=== PATIENT | male | born 1965 | race Caucasian/White ===

== ENCOUNTER 2024-01-02 06:09 | Inpatient (IN) | payer OTHER, SELFPAY ==
[2024-01-02] VITALS (28 sets, daily range): BP systolic 93–139; BP diastolic 74–106; PULSE 71–141; RESP 14–24; TEMP 36–37; O2SAT 91–99; BMI 39.6
--- NOTE | 2024-01-02 06:48 | CRLHL7_ITS ---
For Patients: As a result of the Century Cures Act, medical imaging exams and procedure reports are released immediately into your electronic medical record. You may view this report before your referring provider. If you have questions, please contact your health care provider. INDICATION: Abdominal pain. COMPARISON: None. TECHNIQUE: CT of the abdomen and pelvis with intravenous contrast. Multiplanar axial, coronal, and sagittal reformats were reconstructed. Contrast: 147 mL Isovue 370. FINDINGS: Lung bases: Densely calcified left lower lobe granuloma. Prominent extrapleural fat deposition. Liver: Diffuse hepatic steatosis. The liver is not enlarged or cirrhotic. The portal vein is patent. Gallbladder and bile ducts: Normal gallbladder. No bile duct dilation. Pancreas: Normal. Spleen: Calcified splenic granulomas. Normal spleen size. Adrenal glands: Normal. Kidneys: Normal parenchyma. No cyst or solid mass. No calculi. No urinary tract dilation. Urinary bladder: Normal. Pelvis: No cyst or mass. Vessels: Atherosclerotic vascular calcifications. No abdominal aortic aneurysm. Widely patent mesenteric vasculature. Bowel: Stomach and duodenum are decompressed. There is gradual transition to dilated small bowel. The distal transition point is at the entry into the periumbilical hernia. The bowel within the hernia sac is also fairly dilated. The bowel within the hernia sac is mildly thick-walled and there is a small amount of fluid within the hernia sac. The neck of the hernia measures 4.2 x 4.7 centimeters. The hernia sac measures 11 by 12 x 8 centimeters. The dilated small bowel proximal to the hernia sac has normal bowel wall thickness and enhancement. There is no pneumatosis. No mesenteric or portal venous gas. No free air. The transition point is at the level of the distal ileum. The terminal ileum has a normal CT appearance. Normal appendix.. Mild stool burden. Lymph nodes: No adenopathy. Peritoneum: No ascites. Abdominal wall: See above. Bones: No fractures. No focal worrisome bone lesions. IMPRESSION: 1. Small-bowel obstruction due to an incarcerated appearing umbilical hernia. Mild thickening of the bowel wall within the hernia sac may indicate mild ischemia. No perforation. 2. Diffuse hepatic steatosis. Please note that all CT scans at this facility use dose modulation, iterative reconstruction, and/or weight-based dosing when appropriate to reduce radiation dose to as low as reasonably achievable. Dictated by Cynthia Kramer MD @ 01/02/2024 8:04:27 AM (Electronically Signed)
[2024-01-02] MEDS: 0.9 % SODIUM CHLORIDE 1000 ml 1,000 ML 500 ML IV (06:58)
[2024-01-02] MEDS: ONDANSETRON 2 MG/ML inj 4 MG IVP (06:58)
[2024-01-02] MEDS: fentaNYL 100 MCG/2 ML inj 50 MCG IVP (06:58)
[2024-01-02 07:03] LABS: Basophils Percent Auto 0.2 % (0.0-3.0); Eosinophils Percent Auto 0.6 % (0.0-7.0); Hematocrit 50.6 % (37.0-53.0); Hemoglobin* 17.7 gm/dL (13.5-17.5); Immature Granulocytes Pct Auto 0.2 %; Lymphocytes Percent Auto 7.6 % (20-44); Mean Corpuscular HGB Conc 35 gm/dL (32-36); Mean Corpuscular Hemoglobin 33 pg (26-34); Mean Corpuscular Volume 94 fL (80-100); Neutrophils Percent Auto 85.4 % (42.0-72.0); Platelet Count* 198 K/uL (140-440); RDW Coefficient of Variation % 12.6 % (11.5-15.5); Red Blood Count 5.41 m/uL (4.30-5.90); White Blood Count* 12.83 K/uL (4.50-11.00)
--- NOTE | 2024-01-02 07:06 | ED.ABDPAIN ---
HPI - Abdominal Pain General Date Seen: 01/02/24 <Ronen Mckeon MD - Last Filed: 01/15/24 22:52> Chief Complaint: Abdominal Pain <Ronen Mckeon MD - Last Filed: 01/15/24 22:52> Stated Complaint: Lower abd pain <Ronen Mckeon MD - Last Filed: 01/15/24 22:52> Time Seen by Provider: 01/02/24 06:39 <Ronen Mckeon MD - Last Filed: 01/15/24 22:52> Source: patient <Ronen Mckeon MD - Last Filed: 01/15/24 22:52> Mode of arrival: ambulatory <Ronen Mckeon MD - Last Filed: 01/15/24 22:52> Limitations: no limitations <Ronen Mckeon MD - Last Filed: 01/15/24 22:52> History of Present Illness HPI narrative: 58-year-old male who presents with pain in his chronic umbilical hernia. This is been present for at least the past six or seven years with only minor discomfort. Over the last two or three weeks pain has gotten more severe in over the past 24 hours it has gotten intolerable. He has had some loose stools as well as nausea and vomiting. The size of the hernia increases and decreases. It feels better as he pushes it in but will not stay in. He was going to have this fixed about six years ago and then had some issues with atrial fibrillation and then the COVID pandemic started. All these things had led to a delay. He does not have the local physician. He occasionally sees Dr. Lopez in [place]. He does follow-up with Cardiology periodically. He is on metoprolol and diltiazem chronically. He denies fevers or chills. He denies any black or bloody stools. He is not on a blood thinner. <Ronen Mckeon MD - Last Filed: 01/15/24 22:52> Related Data Home Medications: Home Medications ?Medication ?Instructions ?Recorded ?Confirmed diltiazem HCl 240 mg 240 mg PO DAILY 01/02/24 01/15/24 capsule,extended release 24 hr metoprolol succinate 100 mg 100 mg PO DAILY 01/02/24 01/15/24 tablet,extended release 24 hr <Ronen Mckeon MD - Last Filed: 01/15/24 22:52> Allergies/Adverse Reactions: Allergies Allergy/AdvReac Type Severity Reaction Status Date / Time Penicillins AdvReac Verified 01/15/24 13:05 <Ronen Mckeon MD - Last Filed: 01/15/24 22:52> Review of Systems Narrative Review of systems is as outlined above otherwise noted to be negative. 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 HEENT: Conjunctiva clear. Neck is supple without adenopathy, thyromegaly. Lungs: Clear to auscultation in all nevarez. No wheezes, rales, rhonchi. Heart: Irregularly irregular rate and rhythm without murmur. Abdomen: Obese with a large umbilical hernia. This area is tender and I can only partially reduce it. Bowel sounds are present. The remainder of the abdomen is benign. Extremities: No cyanosis or edema. Good distal pulses. Skin: No abnormalities noted of the exposed skin. Neurologic: Awake, alert, fully oriented. Neurologic exam is nonfocal. <Ronen Mckeon MD - Last Filed: 01/15/24 22:52> Const: Vital Signs, click to edit/add: Vital Signs - 24 hr 01/02/24 06:17 01/02/24 06:43 01/02/24 07:25 Temperature 97.6 F Pulse Rate [Pulse Oximeter] 104 H 91 Respiratory Rate 24 20 Blood Pressure 131/80 Blood Pressure [Le ft Upper Arm] 93/82 122/93 H Pulse Oximetry 96 96 Oxygen Delivery Me thod Room Air Room Air <Ronen Mckeon MD - Last Filed: 01/15/24 22:52> Vital Signs, click to edit/add: Vital Signs - 24 hr 01/02/24 06:17 01/02/24 06:43 01/02/24 07:25 Temperature 97.6 F Pulse Rate [Pulse Oximeter] 104 H 91 Respiratory Rate 24 20 Blood Pressure 131/80 Blood Pressure [Le ft Upper Arm] 93/82 122/93 H Pulse Oximetry 96 96 Oxygen Delivery Me thod Room Air Room Air <Bonifacio Davila MD - Last Filed: 01/02/24 08:25> Course Course ED Course: Patient seen and examined. He is very uncomfortable. He is given fentanyl 50 mcg IV for pain. Will give him a L of normal saline over 2 hours. He is given Zofran 4 mg IV for nausea. Labs an abdominal CT are ordered. <Ronen Mckeon MD - Last Filed: 01/15/24 22:52> Reevaluation(s) Reevaluation #1: Patient's labs have returned. CBC shows white blood count of 12.8 chief. Basic metabolic panel shows a sodium 132 and a glucose of 150. LFTs show an AST of 47, total bilirubin 1.6, direct bilirubin 0.6. Lipase is normal. <Ronen Mckeon MD - Last Filed: 01/15/24 22:52> Reevaluation #2: I called Dr. Sims who will review the CT scan and call back. <Ronen Mckeon MD - Last Filed: 01/15/24 22:52> Time of Reevaluation #3: 08:10 <Bonifacio Davila MD - Last Filed: 01/02/24 08:25> Reevaluation #3: Care discussed with Dr. Sims, plan for OR today <Bonifacio Davila MD - Last Filed: 01/02/24 08:25> Vital Signs Vital signs: Initial Vital Signs Temperature 97.6 F 01/02/24 06:17 Temperature Source Temporal Artery Scan 01/02/24 06:17 Pulse Rate 104 H 01/02/24 06:17 Respiratory Rate 24 01/02/24 06:17 Blood Pressure 93/82 01/02/24 06:17 Blood Pressure Mean 85 01/02/24 06:17 Blood Pressure Position Sitting 01/02/24 06:17 Pulse Oximetry 96 01/02/24 06:17 Oxygen Delivery Method Room Air 01/02/24 06:17 Vital Signs Temperature 97.6 F 01/02/24 06:17 Pulse Rate 104 H 01/02/24 06:17 Respiratory Rate 24 01/02/24 06:17 Blood Pressure 93/82 01/02/24 06:17 Pulse Oximetry 96 01/02/24 06:17 Oxygen Delivery Method Room Air 01/02/24 06:17 Temperature 98.8 F 01/05/24 07:00 Pulse Rate 93 01/05/24 07:00 Respiratory Rate 18 01/05/24 07:00 Blood Pressure 150/97 H 01/05/24 07:00 Pulse Oximetry 99 01/05/24 07:00 Oxygen Delivery Method Room Air 01/05/24 07:00 Oxygen Flow Rate 0 01/04/24 23:16 <Ronen Mckeon MD - Last Filed: 01/15/24 22:52> Initial Vital Signs Temperature 97.6 F 01/02/24 06:17 Temperature Source Temporal Artery Scan 01/02/24 06:17 Pulse Rate 104 H 01/02/24 06:17 Respiratory Rate 01/02/24 06:17 Blood Pressure 93/82 01/02/24 06:17 Blood Pressure Mean 85 01/02/24 06:17 Blood Pressure Position Sitting 01/02/24 06:17 Pulse Oximetry 96 01/02/24 06:17 Oxygen Delivery Method Room Air 01/02/24 06:17 Vital Signs Temperature 97.6 F 01/02/24 06:17 Pulse Rate 104 H 01/02/24 06:17 Respiratory Rate 24 01/02/24 06:17 Blood Pressure 93/82 01/02/24 06:17 Pulse Oximetry 96 01/02/24 06:17 Oxygen Delivery Method Room Air 01/02/24 06:17 Temperature 98.8 F 01/05/24 07:00 Pulse Rate 93 01/05/24 07:00 Respiratory Rate 18 06/17/24 07:00 Blood Pressure 150/97 H 01/05/24 07:00 Pulse Oximetry 99 01/05/24 07:00 Oxygen Delivery Method Room Air 01/05/24 07:00 Oxygen Flow Rate 0 01/04/24 23:16 <Bonifacio Davila MD - Last Filed: 01/02/24 08:25> Medications Administered Medications: Discontinued Medications Generic Name Dose Route Start Last Admin Trade Name Freq PRN Reason Stop Dose Admin Acetaminophen 650 mg 01/02/24 14:50 01/04/24 06:24 Acetaminophen 325 Mg Tablet PO 650 mg Q4H PRN Administration Pain Acetaminophen 650 mg 01/04/24 11:00 01/05/24 06:43 Acetaminophen 325 Mg Tablet PO 650 mg Q4H JAMES Administration Hydrocodone Bitart/Acetaminophen 1 - 2 tab 01/02/24 14:50 01/03/24 04:03 Hydrocodone-Acetamin 5-325 Mg 1 Tab PO 2 tab Q4H PRN Administration Pain Bupivacaine HCl 30 ml 01/02/24 11:16 01/02/24 13:22 Bupivacaine 0.25% 30 Ml INJECTION 01/02/24 11:17 8 ml ONCE ONE Administration Bupivacaine HCl 30 ml 01/03/24 11:02 01/03/24 11:02 Bupivacaine 0.5% 30 Ml INJECTION 01/03/24 11:03 20 ml ONCE ONE Administration Diltiazem HCl 240 mg 01/02/24 08:38 01/02/24 09:04 Diltiazem 240 Mg Cap (Cd) PO 01/02/24 08:39 240 mg ONCE ONE Administration Diltiazem HCl 240 mg 01/03/24 09:00 01/05/24 09:02 Diltiazem 240 Mg Cap (Cd) PO 240 mg DAILY JAMES Administration Ertapenem 1 gm 01/02/24 10:13 01/02/24 10:42 Ertapenem 1 Gm Inj IVPB 01/02/24 10:14 1 gm ONCE ONE Administration Fentanyl 50 mcg 01/02/24 06:49 01/02/24 06:58 Fentanyl 100 Mcg/2 Ml Inj IVP 01/02/24 06:50 50 mcg ONCE ONE Administration Hydromorphone HCl 0.5 mg 01/02/24 08:33 01/02/24 08:46 Hydromorphone 0.5 Mg/0.5 Ml Inj IVP 01/02/24 08:34 0.5 mg ONCE ONE Administration Hydromorphone HCl 0.5 mg 01/02/24 09:23 01/02/24 14:34 Hydromorphone 0.5 Mg/0.5 Ml Inj IVP 0.5 mg Q10M PRN Administration Pain Hydromorphone HCl 0.1 - 0.5 mg 01/02/24 14:50 01/03/24 14:23 Hydromorphone 0.5 Mg/0.5 Ml Inj IVP 0.5 mg Q2H PRN Administration Pain Sodium Chloride 1,000 mls @ 500 mls/hr 01/02/24 06:50 01/02/24 09:04 0.9 % Sodium Chloride 1000 Ml IV 01/02/24 08:49 Infused .Q2H JAMES Infusion Lactated Ringer's 1,000 mls @ 100 mls/hr 01/02/24 09:25 01/02/24 14:35 Lactated Ringers 1000 Ml IV 35 mls/hr .Q10H JAMES Infusion Lactated Ringer's 1,000 mls @ 100 mls/hr 01/03/24 08:45 01/03/24 11:51 Lactated Ringers 1000 Ml IV 100 mls/hr .Q10H JAMES Administration Ketorolac Tromethamine 15 mg 01/02/24 14:50 01/04/24 02:41 Ketorolac 15 Mg/Ml Inj IVP 01/07/24 14:49 15 mg Q6H PRN Administration Pain Ketorolac Tromethamine 15 mg 01/04/24 11:00 01/05/24 11:06 Ketorolac 15 Mg/Ml Inj IVP 01/07/24 10:59 15 mg Q6H JAMES Administration Metoprolol Succinate 100 mg 01/02/24 08:37 01/02/24 09:04 Metoprolol Succinate (Xl) 100 Mg Tab PO 01/02/24 08:38 100 mg ONCE ONE Administration Metoprolol Succinate 100 mg 01/03/24 09:00 01/05/24 09:02 Metoprolol Succinate (Xl) 100 Mg Tab PO 100 mg DAILY JAMES Administration Ondansetron HCl 4 mg 01/02/24 06:49 01/02/24 06:58 Ondansetron 2 Mg/Ml Inj IVP 01/02/24 06:50 4 mg ONCE ONE Administration Oxycodone HCl 5 - 10 mg 01/03/24 12:47 01/04/24 15:56 Oxycodone 5 Mg Tablet PO 5 mg Q4H PRN Administration Pain Senna/Docusate Sodium 1 tab 01/03/24 21:00 01/04/24 08:41 Sennosides/Docusate Tablet PO 1 tab BID JAMES Administration Senna/Docusate Sodium 2 tab 01/04/24 21:00 01/05/24 09:03 Sennosides/Docusate Tablet PO 2 tab BID JAMES Administration Sodium Chloride 10 ml 01/02/24 09:23 01/02/24 21:21 Sodium Chloride 0.9 % (Flush) 10 Ml Syringe IVF 10 ml .FLUSH PRN Administration Sodium Chloride 10 ml 01/03/24 08:45 01/04/24 11:16 Sodium Chloride 0.9 % (Flush) 10 Ml Syringe IVF 10 ml .FLUSH PRN Administration <Ronen Mckeon MD - Last Filed: 01/15/24 22:52> Discontinued Medications Generic Name Dose Route Start Last Admin Trade Name Freq PRN Reason Stop Dose Admin Acetaminophen 650 mg 01/02/24 14:50 01/04/24 06:24 Acetaminophen 325 Mg Tablet PO 650 mg Q4H PRN Administration Pain Acetaminophen 650 mg 01/04/24 11:00 01/05/24 06:43 Acetaminophen 325 Mg Tablet PO 650 mg Q4H JAMES Administration Hydrocodone Bitart/Acetaminophen 1 - 2 tab 01/02/24 14:50 01/03/24 04:03 Hydrocodone-Acetamin 5-325 Mg 1 Tab PO 2 tab Q4H PRN Administration Pain Bupivacaine HCl 30 ml 01/02/24 11:16 01/02/24 13:22 Bupivacaine 0.25% 30 Ml INJECTION 01/02/24 11:17 8 ml ONCE ONE Administration Bupivacaine HCl 30 ml 01/03/24 11:02 01/03/24 11:02 Bupivacaine 0.5% 30 Ml INJECTION 01/03/24 11:03 20 ml ONCE ONE Administration Diltiazem HCl 240 mg 01/02/24 08:38 01/02/24 09:04 Diltiazem 240 Mg Cap (Cd) PO 01/02/24 08:39 240 mg ONCE ONE Administration Diltiazem HCl 240 mg 01/03/24 09:00 01/05/24 09:02 Diltiazem 240 Mg Cap (Cd) PO 240 mg DAILY JAMES Administration Ertapenem 1 gm 01/02/24 10:13 01/02/24 10:42 Ertapenem 1 Gm Inj IVPB 01/02/24 10:14 1 gm ONCE ONE Administration Fentanyl 50 mcg 01/02/24 06:49 01/02/24 06:58 Fentanyl 100 Mcg/2 Ml Inj IVP 01/02/24 06:50 50 mcg ONCE ONE Administration Hydromorphone HCl 0.5 mg 01/02/24 08:33 01/02/24 08:46 Hydromorphone 0.5 Mg/0.5 Ml Inj IVP 01/02/24 08:34 0.5 mg ONCE ONE Administration Hydromorphone HCl 0.5 mg 01/02/24 09:23 01/02/24 14:34 Hydromorphone 0.5 Mg/0.5 Ml Inj IVP 0.5 mg Q10M PRN Administration Pain Hydromorphone HCl 0.1 - 0.5 mg 01/02/24 14:50 01/03/24 14:23 Hydromorphone 0.5 Mg/0.5 Ml Inj IVP 0.5 mg Q2H PRN Administration Pain Sodium Chloride 1,000 mls @ 500 mls/hr 01/02/24 06:50 01/02/24 09:04 0.9 % Sodium Chloride 1000 Ml IV 01/02/24 08:49 Infused .Q2H JAMES Infusion Lactated Ringer's 1,000 mls @ 100 mls/hr 01/02/24 09:25 01/02/24 14:35 Lactated Ringers 1000 Ml IV 35 mls/hr .Q10H JAMES Infusion Lactated Ringer's 1,000 mls @ 100 mls/hr 01/03/24 08:45 01/03/24 11:51 Lactated Ringers 1000 Ml IV 100 mls/hr .Q10H JAMES Administration Ketorolac Tromethamine 15 mg 01/02/24 14:50 01/04/24 02:41 Ketorolac 15 Mg/Ml Inj IVP 01/07/24 14:49 15 mg Q6H PRN Administration Pain Ketorolac Tromethamine 15 mg 01/04/24 11:00 01/05/24 11:06 Ketorolac 15 Mg/Ml Inj IVP 01/07/24 10:59 15 mg Q6H JAMES Administration Metoprolol Succinate 100 mg 01/02/24 08:37 01/02/24 09:04 Metoprolol Succinate (Xl) 100 Mg Tab PO 01/02/24 08:38 100 mg ONCE ONE Administration Metoprolol Succinate 100 mg 01/03/24 09:00 01/05/24 09:02 Metoprolol Succinate (Xl) 100 Mg Tab PO 100 mg DAILY JAMES Administration Ondansetron HCl 4 mg 01/02/24 06:49 01/02/24 06:58 Ondansetron 2 Mg/Ml Inj IVP 01/02/24 06:50 4 mg ONCE ONE Administration Oxycodone HCl 5 - 10 mg 01/03/24 12:47 01/04/24 15:56 Oxycodone 5 Mg Tablet PO 5 mg Q4H PRN Administration Pain Senna/Docusate Sodium 1 tab 01/03/24 21:00 01/04/24 08:41 Sennosides/Docusate Tablet PO 1 tab BID JAMES Administration Senna/Docusate Sodium 2 tab 01/04/24 21:00 01/05/24 09:03 Sennosides/Docusate Tablet PO 2 tab BID JAMES Administration Sodium Chloride 10 ml 01/02/24 09:23 01/02/24 21:21 Sodium Chloride 0.9 % (Flush) 10 Ml Syringe IVF 10 ml .FLUSH PRN Administration Sodium Chloride 10 ml 01/03/24 08:45 01/04/24 11:16 Sodium Chloride 0.9 % (Flush) 10 Ml Syringe IVF 10 ml .FLUSH PRN Administration <Bonifacio Davila MD - Last Filed: 01/02/24 08:25> MDM - Abdominal Pain Lab Data Labs: Lab Results 01/02/24 Range/Units 06:21 WBC 12.83 H (4.50-11.00) K/uL RBC 5.41 (4.30-5.90) m/uL Hgb 17.7 H (13.5-17.5) gm/dL Hct 50.6 (37.0-53.0) % MCV 94 (80-100) fL MCH 33 (26-34) pg MCHC 35 (32-36) gm/dL RDW Coeff of Efren 12.6 (11.5-15.5) % Plt Count 198 (140-440) K/uL Neut % (Auto) 85.4 H (42.0-72.0) % Lymph % (Auto) 7.6 L (20-44) % Prentiss % (Auto) 6.0 (0.0-11.0) % Eos % (Auto) 0.6 (0.0-7.0) % Baso % (Auto) 0.2 (0.0-3.0) % Neut # (Auto) 11.00 H (1.7-7.0) K/uL Lymph # (Auto) 1.00 (0.90-2.90) K/uL Prentiss # (Auto) 0.80 (0.00-0.90) K/UL Eos # (Auto) 0.10 (0.00-0.50) K/uL Baso # (Auto) 0.00 (0.00-0.30) K/uL Abs Immat Gran (auto) 0.00 (0.00-0.30) K/uL Imm/Tot Granulo (auto) 0.2 % Sodium 132 L (135-149) mmol/L Potassium 4.6 (3.6-5.1) mmol/L Chloride 100 (96-114) mmol/L Carbon Dioxide 21 (20-32) mmol/L Anion Gap 11 (7-15) mEq/L BUN 12 (7-30) mg/dL Creatinine 1.2 (0.5-1.5) mg/dL Estimated Creat Clear 75.83 Estimated GFR 70 ml/min Glucose 150 H (60-115) mg/dL Calcium 10.1 (8.4-10.6) mg/dL Total Bilirubin 1.6 H (0.1-1.5) mg/dL Direct Bilirubin 0.6 H (0.0-0.5) mg/dL AST 47 H (12-35) U/L ALT 38 (4-50) U/L Alkaline Phosphatase 86 (40-150) U/L Total Protein 8.7 H (6.0-8.3) g/dL Albumin 5.2 H (3.3-5.0) g/dL Lipase 81 (23-300) U/L <Ronen Mckeon MD - Last Filed: 01/15/24 22:52> Lab Results 01/02/24 Range/Units 06:21 WBC 12.83 H (4.50-11.00) K/uL RBC 5.41 (4.30-5.90) m/uL Hgb 17.7 H (13.5-17.5) gm/dL Hct 50.6 (37.0-53.0) % MCV 94 (80-100) fL MCH 33 (26-34) pg MCHC 35 (32-36) gm/dL RDW Coeff of Efren 12.6 (11.5-15.5) % Plt Count 198 (140-440) K/uL Neut % (Auto) 85.4 H (42.0-72.0) % Lymph % (Auto) 7.6 L (20-44) % Prentiss % (Auto) 6.0 (0.0-11.0) % Eos % (Auto) 0.6 (0.0-7.0) % Baso % (Auto) 0.2 (0.0-3.0) % Neut # (Auto) 11.00 H (1.7-7.0) K/uL Lymph # (Auto) 1.00 (0.90-2.90) K/uL Prentiss # (Auto) 0.80 (0.00-0.90) K/UL Eos # (Auto) 0.10 (0.00-0.50) K/uL Baso # (Auto) 0.00 (0.00-0.30) K/uL Abs Immat Gran (auto) 0.00 (0.00-0.30) K/uL Imm/Tot Granulo (auto) 0.2 % Sodium 132 L (135-149) mmol/L Potassium 4.6 (3.6-5.1) mmol/L Chloride 100 (96-114) mmol/L Carbon Dioxide 21 (20-32) mmol/L Anion Gap 11 (7-15) mEq/L BUN 12 (7-30) mg/dL Creatinine 1.2 (0.5-1.5) mg/dL Estimated Creat Clear 75.83 Estimated GFR 70 ml/min Glucose 150 H (60-115) mg/dL Calcium 10.1 (8.4-10.6) mg/dL Total Bilirubin 1.6 H (0.1-1.5) mg/dL Direct Bilirubin 0.6 H (0.0-0.5) mg/dL AST 47 H (12-35) U/L ALT 38 (4-50) U/L Alkaline Phosphatase 86 (40-150) U/L Total Protein 8.7 H (6.0-8.3) g/dL Albumin 5.2 H (3.3-5.0) g/dL Lipase 81 (23-300) U/L <Bonifacio Davila MD - Last Filed: 01/02/24 08:25> Discharge Plan Discharge Clinical Impression: Umbilical hernia <Ronen Mckeon MD - Last Filed: 01/15/24 22:52> Patient Disposition: XFER to OR <Ronen Mckeon MD - Last Filed: 01/15/24 22:52> Condition: Improved <Ronen Mckeon MD - Last Filed: 01/15/24 22:52> Activity Level: No strenuous activity <Ronen Mckeon MD - Last Filed: 01/15/24 22:52> No strenuous activity <Bonifacio Davila MD - Last Filed: 01/02/24 08:25> Activity Detail: Activity as tolerated. Avoid strenuous activity. No lifting greater than 20 lb for 6 weeks. <Ronen Mckeon MD - Last Filed: 01/15/24 22:52> Activity as tolerated. Avoid strenuous activity. No lifting greater than 20 lb for 6 weeks. <Bonifacio Davila MD - Last Filed: 01/02/24 08:25> Discharge Diet: Regular <Ronen Mckeon MD - Last Filed: 01/15/24 22:52> Regular <Bonifacio Davila MD - Last Filed: 01/02/24 08:25>
[2024-01-02 07:07] LABS: Albumin* 5.2 g/dL (3.3-5.0)
[2024-01-02 07:08] LABS: Chloride* 100 mmol/L (96-114); Potassium* 4.6 mmol/L (3.6-5.1); Sodium* 132 mmol/L (135-149)
[2024-01-02 07:10] LABS: Alkaline Phosphatase* 86 U/L (40-150); Anion Gap 11 mEq/L (7-15); Aspartate Amino Transferase* 47 U/L (12-35); Bilirubin Direct* 0.6 mg/dL (0.0-0.5); Bilirubin Total* 1.6 mg/dL (0.1-1.5); Blood Urea Nitrogen* 12 mg/dL (7-30); Carbon Dioxide* 21 mmol/L (20-32); Creatinine* 1.2 mg/dL (0.5-1.5); Est. Creatinine Clearance* 75.83; Estimated Glomerular Filt Rate 70 ml/min; Glucose* 150 mg/dL (60-115); Lipase* 81 U/L (23-300); Total Protein* 8.7 g/dL (6.0-8.3)
[2024-01-02 07:11] LABS: Alanine Aminotransferase* 38 U/L (4-50); Calcium* 10.1 mg/dL (8.4-10.6); Slide Review Reflex No
[2024-01-02] MEDS: HYDROmorphone 0.5 mg/0.5 ml inj IVP ×4 (08:46→21:20)
[2024-01-02] MEDS: dilTIAZem 240 MG CAP (CD) PO (09:04)
[2024-01-02] MEDS: METOPROLOL SUCCINATE (XL) 100 MG TAB PO (09:04)
[2024-01-02] MEDS: LACTATED RINGERS 1000 ML 1,000 ML 100 ML IV ×2 (09:25→13:43)
--- NOTE | 2024-01-02 10:14 | PM.GSCN ---
History of Present Illness Consult details Date Seen: 01/02/24 Consult date: 01/02/24 Narrative: Patient presents to the emergency department this morning for worsening pain at his umbilical hernia over the last day. He states that he has had a bulge at his belly button for ?years?. Over the last 2 years it has significantly increased in size. For the last 2 weeks he has had more pain and discomfort on a daily basis at the hernia. Yesterday he had some potatoes for breakfast, but started to have pain throughout the day. After work he had a few beers and the pain increased in intensity. He describes the pain as constant and ?deep in his hernia?. But for the last few weeks he has had frequent loose stools. Yesterday he had no bowel movements. He has continued to pass gas and feels like he can not have a bowel movement right now. He has had vomiting, which started yesterday in a decrease in appetite. He has never had pain like this before. No previous abdominal surgery. Patient works on [employer], which does require some heavy lifting. He drinks 3-5 days a week and usually 3-8 beers a time. He denies ever having any symptoms of alcohol withdrawal. He only smokes when he is drinking, about 1 pack per week. He does enjoy chewing tobacco on a daily basis. Review of Systems Status of ROS: Reports: 10 or more systems reviewed and unremarkable except as noted in History and below 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 How often do you have a drink containing alcohol: 2-4 times a month AUDIT-C Alcohol total score: 2 Non-prescribed substance use: denies use Meds Home Medications and Allergies Home Medications ?Medication ?Instructions ?Recorded ?Confirmed ?Type diltiazem HCl 240 mg 240 mg PO DAILY 01/02/24 01/02/24 History capsule,extended release 24 hr metoprolol succinate 100 mg 100 mg PO DAILY 06/14/24 06/14/24 History tablet,extended release 24 hr Allergies Allergy/AdvReac Type Severity Reaction Status Date / Time Penicillins AdvReac Verified 01/02/24 06:19 Exam Narrative: Exam Narrative: General: Alert and oriented, no acute distress. Nontoxic in appearance. Laying in bed with some mild discomfort. Respiratory: Equal breath rise bilaterally, maintained on room air Abdomen: Obese abdomen, soft without guarding or rebound. Large protruding umbilical hernia, this is unable to be reduced completely and tender to palpation. Some a thinning of the skin at the umbilicus and erythema. No significant induration. Const: Vital Signs, click to edit/add: Vital Signs - 24 hr 01/02/24 06:17 01/02/24 06:43 01/02/24 07:25 Temperature 97.6 F Pulse Rate Pulse Rate [Pulse Oximeter] 104 H 91 Respiratory Rate 24 20 Blood Pressure 131/80 Blood Pressure [Le ft Upper Arm] 93/82 122/93 H Pulse Oximetry 96 96 Oxygen Delivery Me thod Room Air Room Air 01/02/24 08:38 01/02/24 08:44 01/02/24 08:45 Temperature Pulse Rate 105 H 93 Pulse Rate [Pulse Oximeter] Respiratory Rate Blood Pressure 125/91 H Blood Pressure [Le ft Upper Arm] Pulse Oximetry 96 94 Oxygen Delivery Me thod 01/02/24 09:04 01/02/24 09:15 01/02/24 09:30 Temperature Pulse Rate 90 108 H 84 Pulse Rate [Pulse Oximeter] Respiratory Rate Blood Pressure Blood Pressure [Le ft Upper Arm] Pulse Oximetry 96 96 91 Oxygen Delivery Me thod 01/02/24 09:45 Temperature Pulse Rate 82 Pulse Rate [Pulse Oximeter] Respiratory Rate Blood Pressure Blood Pressure [Le ft Upper Arm] Pulse Oximetry 94 Oxygen Delivery Me thod Results Labs Labs: Abnormal lab results 01/02/24 Range/Units 06:21 WBC 12.83 H (4.50-11.00) K/uL Hgb 17.7 H (13.5-17.5) gm/dL Neut % (Auto) 85.4 H (42.0-72.0) % Lymph % (Auto) 7.6 L (20-44) % Neut # (Auto) 11.00 H (1.7-7.0) K/uL Sodium 132 L (135-149) mmol/L Glucose 150 H (60-115) mg/dL Total Bilirubin 1.6 H (0.1-1.5) mg/dL Direct Bilirubin 0.6 H (0.0-0.5) mg/dL AST 47 H (12-35) U/L Total Protein 8.7 H (6.0-8.3) g/dL Albumin 5.2 H (3.3-5.0) g/dL Diabetes panel 01/02/24 Range/Units 06:21 Sodium 132 L (135-149) mmol/L Potassium 4.6 (3.6-5.1) mmol/L Chloride 100 (96-114) mmol/L Carbon Dioxide 21 (20-32) mmol/L BUN 12 (7-30) mg/dL Creatinine 1.2 (0.5-1.5) mg/dL Glucose 150 H (60-115) mg/dL Calcium 10.1 (8.4-10.6) mg/dL AST 47 H (12-35) U/L ALT 38 (4-50) U/L Alkaline Phosphatase 86 (40-150) U/L Total Protein 8.7 H (6.0-8.3) g/dL Albumin 5.2 H (3.3-5.0) g/dL Calcium panel 01/02/24 Range/Units 06:21 Calcium 10.1 (8.4-10.6) mg/dL Albumin 5.2 H (3.3-5.0) g/dL Pituitary panel 01/02/24 Range/Units 06:21 Sodium 132 L (135-149) mmol/L Potassium 4.6 (3.6-5.1) mmol/L Chloride 100 (96-114) mmol/L Carbon Dioxide 21 (20-32) mmol/L BUN 12 (7-30) mg/dL Creatinine 1.2 (0.5-1.5) mg/dL Glucose 150 H (60-115) mg/dL Calcium 10.1 (8.4-10.6) mg/dL Adrenal panel 01/02/24 Range/Units 06:21 Sodium 132 L (135-149) mmol/L Potassium 4.6 (3.6-5.1) mmol/L Chloride 100 (96-114) mmol/L Carbon Dioxide 21 (20-32) mmol/L BUN 12 (7-30) mg/dL Creatinine 1.2 (0.5-1.5) mg/dL Glucose 150 H (60-115) mg/dL Calcium 10.1 (8.4-10.6) mg/dL Total Bilirubin 1.6 H (0.1-1.5) mg/dL AST 47 H (12-35) U/L ALT 38 (4-50) U/L Alkaline Phosphatase 86 (40-150) U/L Total Protein 8.7 H (6.0-8.3) g/dL Albumin 5.2 H (3.3-5.0) g/dL All other labs normal. Imaging Abdomen CT scan report/results: report reviewed and image reviewed Progress Note:A&P Assessment and plan (1) Umbilical hernia, incarcerated: Status: Acute Plan Patient is a 58-year-old male, morbidly obese with history of smoking and frequent alcohol use, who presented to the emergency department for increasing pain at a known umbilical hernia. Workup was obtained with CT scan showing incarcerated small bowel with dilation of the involved bowel and wall thickening concerning for possible ischemia. Due to a concern for strangulation and necrosis it is recommended patient proceed to the operating room for emergency surgery. Risks and benefits of the surgery were discussed at length the patient. Risks included, but were not limited to: Bleeding, infection, risk of damage to surrounding structures and possible need for additional surgeries. I also reviewed with the patient his high recurrence rate with any hernia repair given his morbid obesity, smoking and alcohol use. Will plan to proceed 1st with a diagnostic laparoscopy in order to reduce the small bowel and evaluate for possible ischemia. He does understand that if there is evidence of ischemia a small-bowel resection will be needed. Will also plan for primary repair of his hernia, with possible reinforment of mesh. All questions and concerns were addressed with patient agreeing to the above-stated plan.
--- NOTE | 2024-01-02 10:40 | W.ANESCHARGE ---
Anesthesia Charges Start Date/Time Anesthesia Start Date: 01/02/24 Anesthesia Start Time: 10:23 Stop Date/Time Anesthesia Stop Date: 01/02/24 Anesthesia Stop Time: 14:12 Summary Emergency: MDA
[2024-01-02] MEDS: ERTAPENEM 1 GM inj IVPB (10:42)
--- NOTE | 2024-01-02 11:10 | P.ANES_ITS ---
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
--- NOTE | 2024-01-02 13:18 | SUR.OPER ---
SOFA COVER INSPECTOR received verbal consent from for Carroll Block
[2024-01-02] MEDS: BUPIVACAINE 0.25% 30 ML INJECTION (13:22)
--- NOTE | 2024-01-02 14:30 | P.NB_ITS ---
Nerve Block Nerve Block Time Seen by Provider: 14:00 Date Seen: 01/02/24 Type of block requested by surgeon for post-operative analgesia: TAP Side: bilateral Time out performed: Yes Verification of patient name: Yes Verification of date of : Yes Name of person performing procedure: [id number] Continuous monitoring Was continuous monitoring of O2 sat, B/P, nuclear monitoring technician, recorded every 15 minutes?: Yes Procedure Checklist: sterile prep, needles and gloves Ultrasound guided. Images saved: Yes Medications given in 5ml increments after negative aspiration: Marcaine %: 0.25 mL: 30 Needle gauge: 21 and Exparel mL: 10 Needle gauge: 21 Patient tolerated procedure well: Yes Block Charges Block Charge (with Pro Fee): TAP Bilateral Use of Ultrasound Machine for Block: Yes- US Guidance/pain block
--- NOTE | 2024-01-02 15:18 | P.GSOP_ITS ---
Operative Note Date of procedure: 01/02/24 Pre-op diagnosis: Incarcerated umbilical hernia with associated small-bowel obstruction, question of small bowel ischemia Post-op diagnosis: Incarcerated umbilical hernia with associated small-bowel obstruction Type of Procedure: 1. Diagnostic laparoscopy 2. Lysis of adhesions 3. Open umbilical hernia repair with placement of mesh Indications: Patient is a 58-year-old male who presented to the emergency department with a one-day history worsening abdominal pain and a known umbilical hernia. A CT scan was performed with evidence of incarcerated small bowel. The small bowel itself was dilated with bowel wall thickening, concerning for obstruction and possible ischemia. Risks and benefits of proceeding to the operating room were discussed at length with the patient and his . Risks included, but were not limited to: Bleeding, infection, risk of damage to surrounding structures and possible need for additional procedures. All questions and concerns were addressed with patient agreeing to proceed. Procedure Description: After discussing the risks and benefits of the procedure, the patient signed informed consent.? The operative site was marked and the patient was brought to the operating room and placed on the operating table in supine position.? Care was taken to pad the patient's pressure points.?? The patient was then intubated by anesthesia.?? The operative site was then prepped and draped in the usual sterile fashion.? A time-out was then performed. The abdomen was entered in the left upper quadrant with a 5 mm Visiport. Insufflation with done with CO2 and the abdomen briefly surveyed with no evidence of injury. Two 5 mm ports were placed in the left lower quadrant and right upper quadrant. A 12mm port was placed just lateral to the umbilicus. A large umbilical hernia was identified with incarcerated small bowel and surrounding omental adhesions. The omental adhesions were carefully taken down from the anterior abdominal wall and hernia sac with hook cautery. There was some arterial bleeding from the omentum, which was controlled with 5 mm clips. The incarcerated small bowel was gently pushed on from above and pulled with traction intra-abdominally. This allowed for adequate reduction. The small bowel was then carefully examined with a small tear of the mesentery identified, no active bleeding, and a small 2 mm hematoma within the small bowel wall. No evidence of any serosal injury or obvious areas of necrosis. The hematoma was imbricated with an endo-stitch. Attention was then turned to the large fascial defect, which measured approximately 5 x 5 cm. A large hernia sac with redundant skin was present, so the decision was made to repair the fascial defect via an open approach with resection of the redundant skin. The laparoscopic camera was removed and the abdomen desufflated. A midline incision was made over the hernia sac. The hernia sac was circumferentially dissected out from the subcutaneous tissue down to anterior fascia. The hernia sac was then ligated and passed off the back table to be sent to pathology. The fascial edges were cleared with cautery. A 15 x 20 cm large piece of Phasix mesh was chosen for reinforcement. This was placed intra-abdominally and tacked in place with 4 transfascial stitches of 2 0 prolene. The fascial defect was then closed with running 1-0 PDS suture. A wet lap dressing was placed within the subcutaneous tissue and the abdomen was reinflated. The laparoscopic camera was placed back into the abdomen. The Phasix mesh was identified and a loop of inflamed bowel was adherent to the mesh. This did appear to be from suturing of the fascial closure. The bowel did fall into the abdomen away from the mesh during insufflation. This portion of the bowel was carefully examined and a small serosal tear was identified, no evidence of mucosal injury. The serosal tear was imbricated with 2 endo Stitch sutures. No other areas of injury were identified. The Phasix mesh was then further secured to the anterior abdominal wall with circumferential laparoscopic tacks. The mesh itself was flat and had adequate coverage of the repaired fascial defect. The abdomen was then desufflated and all ports removed. The 12 mm port site was closed with 0 Vicryl via a [id number] stitch. All port sites were closed with 4-0 Monocryl suture. The midline incision had a large amount of redundant skin present. This was sharply excised. The umbilicus was created by tacking down the dermis with 3-0 Vicryl. The subcutaneous tissue was reapproximated with interrupted 3 0 Vicryl suture. The skin was brought together with running 4-0 Monocryl. Sterile dressings were then applied. ? The patient was then woken and transported to the recovery area in stable condition. ? The patient tolerated the procedure well. Findings: Incarcerated small bowel with no obvious necrosis or resection performed. Primary repair of the umbilical hernia with placement of Phasix mesh intra-a bdominally. Anesthesia: GETA Surgeon: Ester Sims MD Estimated blood loss (mL): 25 Additional Specimen Information: Hernia sac Condition: stable Disposition: PACU
[2024-01-02] MEDS: KETOROLAC 15 MG/ML inj IVP (16:09)
[2024-01-02] MEDS: HYDROCODONE-ACETAMIN 5-325 MG 1 TAB PO ×2 (17:19→23:58)
--- NOTE | 2024-01-02 20:06 | PC.NURSE ---
Nursing Care Hours: [id number] Pt this shift calm and cooperative, alert and oriented. Pain treated per eMAR, and effective. Pt SB assist up to bathroom. Tolerating regular soft diet. Abd binder left off d/t discomfort while in bed. TEDs on so SCD left off. IV patent. BS active, denies nausea. VSS
[2024-01-02] MEDS: SODIUM CHLORIDE 0.9 % (FLUSH) 10 ML SYRINGE IVF (21:21)
--- NOTE | 2024-01-02 22:21 | PC.NURSE ---
SHIFT NOTE: Pt is doing well ambulating independently in room. Alert and oriented and tolerated regular diet well. Pain level has been rated at 5 and prefer to stay on top of the pain. Pt had adequate oral intake and urine. Saline lock. LAP sites and dressing appeared clean and dry. Vitally stable.
[2024-01-03] VITALS (22 sets, daily range): BP systolic 96–155; BP diastolic 63–121; PULSE 71–126; RESP 10–18; TEMP 36–37.1; O2SAT 89–99
[2024-01-03] MEDS: HYDROCODONE-ACETAMIN 5-325 MG 1 TAB PO (04:03)
--- NOTE | 2024-01-03 05:47 | PC.NURSE ---
Patient alert, oriented and cooperative with cares. NPO after midnight per Dr Sims?s verbal orders. Ambulated independently in room and hallways this shift. Given PRN [place] for abdominal pain. Dressing to abdomen has a small amount of drainage on dressing. Steri-strips to lap sites intact with no drainage.
[2024-01-03] MEDS: METOPROLOL SUCCINATE (XL) 100 MG TAB PO (08:04)
[2024-01-03] MEDS: HYDROmorphone 0.5 mg/0.5 ml inj IVP ×2 (08:04→14:23)
--- NOTE | 2024-01-03 08:18 | PM.EN ---
Chart Event Note Date Seen: 01/03/24 Chart Event Note: Discussed with patient his hernia repair. Primary fascia repair of the umbilical hernia with placement laparoscopic biologic mesh. On reviewing the documentation and mesh utilized there was placement of Phasix Mesh. This is a fully resorbable mesh with rapid tissue incorporation, but when placed in the abdomen it should not come in contact with bowel. When contact occurs as the mesh incorporates it can cause an increase in inflammation and adhesions. This was discussed at length with the patient. Due to these risks I am recommending removal with replacement of a Phasix ST mesh. This importantly has a hydrogel barrier to minimize tissue attachment. Risks and benefits of the procedure were discussed at length. Importantly the benefit of a decrease risk in inflammation, chronic pain, adhesions, small bowel erosion and fistula creation were discussed. All questions and concerns were addressed with patient agreeing to proceed.
[2024-01-03] MEDS: LACTATED RINGERS 1000 ML 1,000 ML 100 ML IV ×2 (09:05→11:51)
[2024-01-03] MEDS: BUPIVACAINE 0.5% 30 ML INJECTION (11:02)
--- NOTE | 2024-01-03 11:35 | PM.GSPRC ---
Operative Note Date of procedure: 01/03/24 Pre-op diagnosis: Removal of mesh with replacement of Phasix ST intra abdominal mesh Post-op diagnosis: Same Type of Procedure: 1. Diagnostic Laparoscopy 2. Explantation of mesh with replacement of Phasix ST intra abdominal mesh Indications: Patient is a 58-year-old male who is postop day 1 repair of incarcerated umbilical hernia with associated obstruction. There was placement of a large piece of Phasix mesh intra abdominally after the fascial defect was repaired. Due to the increased risk of inflammation, adhesions and fistula formation with this type of mesh when used intra abdominally, it was recommended that the mesh be removed and replaced with Phasix ST. Risks and benefits of removal was discussed at length with the patient. All questions and concerns were addressed with patient agreeing to proceed. Procedure Description: After discussing the risks and benefits of the procedure, the patient signed informed consent.? The operative site was marked and the patient was brought to the operating room and placed on the operating table in supine position.? Care was taken to pad the patient's pressure points.?? The patient was intubated by anesthesia.?? The operative site was then prepped and draped in the usual sterile fashion.? A time-out was then performed. The abdomen was entered in the LUQ with a 5mm visiport. It was insufflated with CO2 and briefly surveyed with no evidence of injury. The previously placed intra abdominal mesh was tacked to the anterior abdominal wall. No evidence of any adhesions or stuck bowel. An additional 5mm port was placed in the LLQ and RUQ. A 12mm port was placed just lateral to the umbilicus. These were placed at the previous port sites with no new incisions created. The small bowel was run and the previous endostitch repairs visualized. They appeared intact with no concern for necrosis or perforation. There was a small clot over one of the stitches, but this was suctioned off and the tissue underlying the clot was healthy in appearance. The midline incision was reopened. The fascial repair was intact. 4 transfascial anchoring stitches were identified and removed. A wet lap was placed within the subcutaneous tissue. The laparoscopic camera was placed into the abdomen and the previously tacked phasix mesh was removed with gently traction downward, away from the abdominal wall. All tacks stayed within the mesh. Once the mesh was free it was removed from the abdomen via an endocatch bag. The anterior abdominal wall was then carefully examined with no other fascial defects identified and hemostasis excellent. A 15 x 20 cm piece of Phasix ST mesh was chosen for placement. This importantly had a side of hydrogel, allowing for safe placement in the abdomen. The mesh was tagged inferior and superior on the mesh with 2-0 prolene suture. It was then rolled and placed in the abdomen through the 12mm port. Using the vi epi the inferior and superior 2-0 prolene stitches were secured transfascial, to allow for appropriate coverage and orientation. Care was taken for the hydrogel layer to be facing down toward the bowel. The abdominal pressure was decreased to 12 mm. Intra abdominal tacks were then placed circumferentially on the mesh. The 12 mm port was closed with an 0 vicryl via a vi epi. All other ports were removed under direct visualization. Local anesthetic of 0.5% bupivicaine was placed at the incision sited. The port sites were closed with 4-0 monocryl. The midline incision was tacked down with 3-0 vicryl to create an umbilicus. The incision was then closed in layers with interrupted 3-0 vicryl and running 4-0 monocryl subcuticular stitch. Sterile dressings were then applied. ? The patient was then woken and transported to the recovery area in stable condition. ? The patient tolerated the procedure well. Findings: Previous placed phasix mesh explanted and replaced with Phasix ST intra abdominal mesh. Anesthesia: GETA Surgeon: Ester Sims MD Estimated blood loss (mL): 5 Condition: stable Disposition: PACU
--- NOTE | 2024-01-03 11:53 | SUR.PHASEI ---
Patient meets anesthesia discharge criteria from PACU. He is in afib and takes medications.
--- NOTE | 2024-01-03 12:06 | W.ANESCHARGE ---
Anesthesia Charges Start Date/Time Anesthesia Start Date: 01/03/24 Anesthesia Start Time: 09:04 Stop Date/Time Anesthesia Stop Date: 01/03/24 Anesthesia Stop Time: 11:21 Summary Emergency: OPHTHALMIC SURGEON
[2024-01-03] MEDS: KETOROLAC 15 MG/ML inj IVP ×2 (14:22→20:23)
[2024-01-03] MEDS: OXYCODONE 5 MG TABLET PO ×2 (14:23→18:25)
[2024-01-03] MEDS: dilTIAZem 240 MG CAP (CD) PO (14:23)
[2024-01-03] MEDS: ACETAMINOPHEN 325 MG TABLET 650 MG PO ×2 (17:26→23:24)
--- NOTE | 2024-01-03 19:37 | PC.NURSE ---
Nursing Care Hours: [id number] Pt this shift agitated in morning d/t not feeling heard last night regarding pain needs. Was also told he was going to be NPO but no reason was given. In the morning, Dr Sims explained the need for going back to OR today. Pt heard cussing while Dr. Sims was in the room. Administrative Project Coordinator gave pt time to call spouse before going in for assessment. When senior mortgage underwriter met with pt, pt seen walking the room. Therapeutic listening offered and pt appeared to calm down. VSS, assessment done, pain meds given prior to surgery. Arrived back on the unit around 1200. One soft BP noted, Bradypnea with adequate oxygenation. Pt sleeping most of the recovery. End of 6 hour, pt was having periods of apnea and spo2 would fall below 90%. 1L oximask applied, and spo2 raised to 99%. Up to bathroom x2 and walked granados x1. Tolerating clear liquids. Pain controlled per eMAR. Discussed a pain control schedule that pt agrees with.
[2024-01-03] MEDS: SENNOSIDES/DOCUSATE TABLET 1 TAB PO (20:23)
[2024-01-04] VITALS (7 sets, daily range): BP systolic 124–142; BP diastolic 80–98; PULSE 79–99; RESP 16–18; TEMP 36.4–36.9; O2SAT 96–100
[2024-01-04] MEDS: KETOROLAC 15 MG/ML inj IVP ×4 (02:41→23:07)
[2024-01-04] MEDS: OXYCODONE 5 MG TABLET PO ×2 (06:23→15:56)
[2024-01-04] MEDS: ACETAMINOPHEN 325 MG TABLET 650 MG PO ×5 (06:24→23:06)
--- NOTE | 2024-01-04 07:08 | PC.NURSE ---
Late entry order: Change admission status to inpatient as of 01/03/24 at 1200.
--- NOTE | 2024-01-04 07:40 | PC.NURSE ---
Pt is alert and oriented x3. Afebrile. Pt reports 6/10 pain abdomen, pain managed with PRN medication. Pt has 4 lap sites that are CDI. Pt is up ad patricia in room, voiding, tolerating full liquid diet and was planning on trying for a regular diet for breakfast. Pt slept intermittently throughout night. ?
[2024-01-04] MEDS: dilTIAZem 240 MG CAP (CD) PO (08:41)
[2024-01-04] MEDS: SENNOSIDES/DOCUSATE TABLET 1 TAB PO (08:41)
[2024-01-04] MEDS: METOPROLOL SUCCINATE (XL) 100 MG TAB PO (08:41)
--- NOTE | 2024-01-04 10:22 | PM.GSPN ---
Subjective Subjective Date Seen: 01/04/24 Interval history: Patient is doing well this morning. He was able to sleep a little more last night. He does feel like his pain is being controlled. He does think that the oxycodone works better than [place]. His biggest concern is when he has to have a bowel movement and not wanting to push too much. He has been passing gas and feels like he will have 1 soon. This morning he ate regular food, with no nausea or vomiting. He has been walking around his room and in the [place]. Exam Narrative: Exam Narrative: General: Alert and oriented, no acute distress Abdomen: Soft, appropriately tender over incision sites. Steri-Strips in place clean/dry/intact. Some mild ecchymoses around incisions. Const: Vital Signs, click to edit/add: Vital Signs - 24 hr 01/03/24 11:18 01/03/24 11:19 01/03/24 11:24 Temperature 98.7 F Pulse Rate 100 125 H 126 H Pulse Rate [Pulse Oximeter] Respiratory Rate 12 12 12 Blood Pressure 146/117 H 138/118 H 150/113 H Blood Pressure [Ri ght Arm] Pulse Oximetry 93 93 93 Oxygen Delivery Me thod Aerosol Mask Oxygen Flow Rate 01/03/24 11:30 01/03/24 11:35 01/03/24 11:40 Temperature Pulse Rate 123 H 98 94 Pulse Rate [Pulse Oximeter] Respiratory Rate 12 12 12 Blood Pressure 155/95 H 123/77 137/121 H Blood Pressure [Ri ght Arm] Pulse Oximetry 90 95 95 Oxygen Delivery Me thod Aerosol Mask Oxygen Flow Rate 01/03/24 11:45 01/03/24 11:50 01/03/24 12:00 Temperature 98.8 F 97.9 F Pulse Rate 86 91 78 Pulse Rate [Pulse Oximeter] Respiratory Rate 12 12 12 Blood Pressure 132/104 H 122/107 H 126/109 H Blood Pressure [Ri ght Arm] Pulse Oximetry 96 96 98 Oxygen Delivery Me thod Aerosol Mask Room Air Oxygen Flow Rate 01/03/24 12:15 01/03/24 12:30 01/03/24 12:45 Temperature 97.1 F L Pulse Rate 78 72 77 Pulse Rate [Pulse Oximeter] Respiratory Rate 10 L 12 Blood Pressure 96/63 120/92 H 119/100 H Blood Pressure [Ri ght Arm] Pulse Oximetry 95 95 99 Oxygen Delivery Me thod Room Air Room Air Room Air Oxygen Flow Rate 01/03/24 13:00 01/03/24 13:30 01/03/24 14:00 Temperature 97.3 F L Pulse Rate 77 95 Pulse Rate [Pulse Oximeter] Respiratory Rate 12 Blood Pressure 128/110 H 125/95 H 113/89 Blood Pressure [Ri ght Arm] Pulse Oximetry 99 98 95 Oxygen Delivery Me thod Room Air Room Air Room Air Oxygen Flow Rate 01/03/24 15:00 01/03/24 15:00 01/03/24 15:00 Temperature 98.1 F Pulse Rate 84 Pulse Rate [Pulse Oximeter] Respiratory Rate 12 12 Blood Pressure 129/101 H Blood Pressure [Ri ght Arm] Pulse Oximetry 89 93 Oxygen Delivery Me thod Room Air Room Air Oxygen Flow Rate 01/03/24 16:00 01/03/24 19:42 01/03/24 20:19 Temperature 98.2 F Pulse Rate 99 Pulse Rate [Pulse Oximeter] 102 H 102 H Respiratory Rate 10 L 14 Blood Pressure 122/92 H Blood Pressure [Ri ght Arm] 126/90 H Pulse Oximetry 99 98 Oxygen Delivery Me thod OxyMask Room Air OxyMask Oxygen Flow Rate 2 01/03/24 23:19 01/03/24 23:19 01/04/24 02:46 Temperature 98.8 F 98.2 F Pulse Rate Pulse Rate [Pulse Oximeter] 85 95 Respiratory Rate 14 14 16 Blood Pressure Blood Pressure [Ri ght Arm] 126/98 H 142/98 H Pulse Oximetry 98 97 97 Oxygen Delivery Me thod Room Air OxyMask Room Air OxyMask Room Air OxyMask Oxygen Flow Rate 2 01/04/24 07:31 01/04/24 07:31 Temperature 97.7 F Pulse Rate Pulse Rate [Pulse Oximeter] 99 Respiratory Rate 18 18 Blood Pressure Blood Pressure [Ri ght Arm] 130/93 H Pulse Oximetry 96 96 Oxygen Delivery Me thod Room Air Room Air Oxygen Flow Rate 0 Progress Note:A&P Assessment and plan (1) Umbilical hernia, incarcerated: Status: Acute Plan Patient is status post umbilical hernia repair with laparoscopic placement of mesh for incarcerated small bowel. No need for bowel resection. He was taken back to the operating room on postop day 1 for explantation of mesh and replacement of Phasix ST due to the need for intra-abdominal mesh placement and proximity of small bowel. He is postop day 1 from his last procedure. No acute events overnight. He is tolerating a regular diet today. His abdominal pain is expected in the early postop phase, but being well controlled with IV Toradol, Tylenol and oxycodone as needed. I did start him on some stool softeners yesterday, will increase to 2 tabs twice daily. He is still requiring some assistance with ambulation, but this is improved since yesterday. He does wear compression socks on a daily basis, recommend they continue postoperatively. Okay to shower starting today. Anticipate discharge later this evening versus tomorrow morning.
[2024-01-04] MEDS: SODIUM CHLORIDE 0.9 % (FLUSH) 10 ML SYRINGE IVF (11:16)
--- NOTE | 2024-01-04 14:48 | PC.NURSE ---
(7-15)?Pt alert and oriented. Pt had complaints of pain 4-5; see EMAR. Pt up independently and walking in hallways. Pt?s dressing and steri strips are dry and intact. Pt possible to discharge tonight or tomorrow AM.?
[2024-01-04] MEDS: SENNOSIDES/DOCUSATE TABLET 2 TAB PO (21:44)
[2024-01-05] MEDS: ACETAMINOPHEN 325 MG TABLET 650 MG PO ×2 (03:05→06:43)
[2024-01-05 03:10] VITALS: BP 151/103; PULSE 74; RESP 16; TEMP 36.8; O2SAT 96
[2024-01-05 07:00] VITALS: BP 150/97; PULSE 93; RESP 18; TEMP 37.1; O2SAT 99
--- NOTE | 2024-01-05 07:49 | PC.NURSE ---
Pt alert and oriented x3. Afebrile. Pt reports 3-5/10 pain in abdomen, pain managed with PRN medications. Pt's 4 lap sites are CDI with some light bruising around sites. Pt is up ad patricia in room, tolerating regular diet, and had small BM this morning.
[2024-01-05] MEDS: METOPROLOL SUCCINATE (XL) 100 MG TAB PO (09:02)
[2024-01-05] MEDS: dilTIAZem 240 MG CAP (CD) PO (09:02)
[2024-01-05] MEDS: SENNOSIDES/DOCUSATE TABLET 2 TAB PO (09:03)
[2024-01-05] MEDS: KETOROLAC 15 MG/ML inj IVP (11:06)
--- NOTE | 2024-01-05 13:36 | PM.DS1 ---
DS: Providers Provider Date Seen: 01/05/24 Date of admission: 01/03/24 00:00 Primary care physician: Ronen Mckeon MD Admitting Clinician: Ester Sims MD Attending Physician on discharge: Drake Cooper MD DS: Summary Hospital Course Hospital Course: Patient was taken emergently to the operating room for incarcerated and strangulated bowel and a known umbilical hernia. He underwent Reduction of small bowel with no need for resection, primary umbilical hernia repair and placement of laparoscopic mesh. On postop day 1 he was taken back to the operating room for explantation of originally placed mesh and placement of intra-abdominal Phasix mesh ST. Postoperatively patient had return of bowel function. He did have a small bowel movement prior to leaving and was tolerating a regular diet. Pain was well controlled with oral medication. He was ambulating and voiding without difficulty. Plan for follow-up in clinic in 2 weeks. Time Spent with Patient Time attestation: Total time spent providing and/or coordinating discharge services: Exam Narrative: Exam Narrative: General: Alert and oriented, no acute distress Abdomen: Obese abdomen, Steri-Strips in place clean/dry/intact Const: Vital Signs, click to edit/add: Vital Signs - 24 hr 01/04/24 14:32 01/04/24 14:51 01/04/24 19:38 Temperature 97.9 F 98.5 F Pulse Rate [Pulse Oximeter] 79 95 Respiratory Rate 18 18 18 Blood Pressure [Le ft Arm] 135/95 H Blood Pressure [Ri ght Arm] 124/93 H Pulse Oximetry 100 100 98 Oxygen Delivery Me thod Room Air Room Air Room Air Oxygen Flow Rate 0 01/04/24 23:16 01/04/24 23:16 01/04/24 23:16 Temperature 98.5 F Pulse Rate [Pulse Oximeter] Respiratory Rate 16 18 18 Blood Pressure [Le ft Arm] 135/95 H Blood Pressure [Ri ght Arm] Pulse Oximetry 98 98 Oxygen Delivery Me thod Room Air Room Air Oxygen Flow Rate 0 0 01/05/24 03:10 01/05/24 07:00 01/05/24 07:00 Temperature 98.3 F 98.8 F Pulse Rate [Pulse Oximeter] 74 93 Respiratory Rate 16 18 18 Blood Pressure [Le ft Arm] 151/103 H Blood Pressure [Ri ght Arm] 150/97 H Pulse Oximetry 96 99 99 Oxygen Delivery Me thod Room Air Room Air Room Air Oxygen Flow Rate 01/05/24 07:00 Temperature Pulse Rate [Pulse Oximeter] 93 Respiratory Rate 18 Blood Pressure [Le ft Arm] Blood Pressure [Ri ght Arm] Pulse Oximetry Oxygen Delivery Me thod Oxygen Flow Rate Discharge Plan Discharge Disposition: Home, Self-Care Date of Admission: 01/03/24 00:00 Attending Provider on Discharge: Ester Sims Primary Care Provider: Ronen Mckeon Condition: Improved Anticipated Discharge Date/Time: 01/04/24 22:18 Discharge Medications: New sennosides-docusate sodium [Stool Softener-Laxative] 8.6-50 mg Tablet 1 tab PO BID Qty: 90 0RF oxycodone 5 mg Tablet 5 - 10 mg PO Q4H PRN (Reason: Pain) Qty: 25 0RF Continued diltiazem HCl 240 mg capsule,extended release 24hr 240 mg PO DAILY metoprolol succinate 100 mg tablet extended release 24 hr 100 mg PO DAILY Discharge Orders: Discharge Order (Routine); Ordered 01/05/24 Ordered By: Ester Sims Patient Education: Oxycodone, Rapid Release (By mouth), Senna (By mouth), Laparoscopic Herniorrhaphy (DC), Post-Operative Instructions: Hernia Repair Additional Instructions: You were prescribed a narcotic pain medication. In addition you may supplement with Tylenol and/or ibuprofen. Be sure to not exceed greater than 4 g of Tylenol in a 24 hour period. While on narcotic pain medicine please take stool softeners. A prescription of stool softeners has been sent to the pharmacy. Stop if having greater than 2 stools per day. You have Steri-Strips dressings in place, allow these to fall off on their own. Okay to shower, allowing soap and water to run over the incisions. Do not soak in a bath or swim for 2 weeks. Follow-up with Dr. Sims in 2-3 weeks. Please call if you are experiencing severe pain, nausea, vomiting, difficulty urinating, fever or not had a bowel movement in 4 days after surgery. Activity Level: No strenuous activity Activity Detail: Activity as tolerated. Avoid strenuous activity. No lifting greater than 20 lb for 6 weeks. Discharge Diet: Regular Follow Up Appointments: Ester Sims MD [Staff Physician] - 01/15/24 1:00 pm ([facility] for postop follow up appointment. ) Ronen Mckeon MD [Primary Care Provider] - Forms: Work/School Release
--- NOTE | 2024-01-05 14:30 | PC.NURSE ---
Discharge: Patient pleasant and cooperative, A&O. VSS, afebrile. Patient reports pain on his abdomen this shift rating 4 out of 10, managed with scheduled medication. Steri strips on abdomen scant bloody drainage. IV removed with tip intact. discharge instructions provided, all questions answered.
== END 2024-01-05 11:40 | disposition home or self-care (01) | DRG 354 ==
LOC: ED 08:14 → SS 10:18 → MEDSURG 14:51 → SS 01-04 07:13 → MEDSURG 01-04 10:19
PROVIDERS: Admitting Provider Surgery; Emergency Provider Family Medicine; PCP Family Medicine; Visit Provider Hospitalist
PROC: 0WUF0JZ Supplement Abdominal Wall with Synthetic Substitute, Open Approach (ICD-10-PCS; principal; 2024-01-02 10:00)
PROC: 0WQF4ZZ Repair Abdominal Wall, Percutaneous Endoscopic Approach (ICD-10-PCS; principal; 2024-01-03 09:00)
DX: K42.0 Umbilical hernia with obstruction, without gangrene (principal); Z68.41 Body mass index [BMI] 40.0-44.9, adult; Z53.31 Laparoscopic surgical procedure converted to open procedure; G89.18 Other acute postprocedural pain; E66.01 Morbid (severe) obesity due to excess calories; F10.90 Alcohol use, unspecified, uncomplicated; F17.220 Nicotine dependence, chewing tobacco, uncomplicated
CPT/HCPCS: 00790; 36415; 64488; 74177; 76942; 80048; 80076; 83690; 85025; 88302; 93005; 99140; 99284; 99285; A4467; A9270; C1781; C9290; J0330; J0665; J1100; J1170; J1335; J1630; J1885; J2405; J2704; J3010; J3475; J3490; J7030; J7120; Q9967